=== PATIENT | female | born 1970 | race Caucasian/White ===

== ENCOUNTER → 2019-04-07 09:32 | Outpatient (BNVA) | payer OTHER, SELFPAY | PROVIDERS: Visit Provider Internal Medicine Rheumatology | DX: G89.29 Other chronic pain (principal); M54.5 Low back pain; M25.512 Pain in left shoulder; I10 Essential (primary) hypertension; F17.210 Nicotine dependence, cigarettes, uncomplicated | CPT/HCPCS: 99203 ==

== ENCOUNTER 2019-04-07 10:57 | Outpatient (CLI) | payer OTHER, SELFPAY ==
--- NOTE | 2019-04-07 11:15 | XR_ITS ---
WS: [id number] PELVIS TECHNIQUE: 1 view(s) of the pelvis CLINICAL INFORMATION: low back pain COMPARISON: None. FINDINGS: Visualized hips are normal in appearance. Normal acetabulum. Lower lumbar spine is normal. Inferior a nd superior pubic rami are normal. Normal iliopectineal line. Sacrum is normal in appearance. Pelvic phleboliths. Partially visualized shunt catheter with tip in the right lower pelvis. XR/XR pelvis 1-2V* [id number] IMPRESSION: Normal pelvis.
== END 2019-04-07 10:58 | disposition home or self-care (01) ==
LOC: RADWPI 11:13
PROVIDERS: PCP Family Medicine; Visit Provider Internal Medicine Rheumatology
DX: M54.5 Low back pain (principal); G89.29 Other chronic pain
CPT/HCPCS: 72170